=== PATIENT | female | born 1980 | race Caucasian/White ===

== ENCOUNTER 2025-08-13 14:04 | Outpatient (CLI) | payer OTHER, SELFPAY | END 2025-08-13 14:05 | disposition home or self-care (01) | LOC: AMB 09-20 02:54 | PROVIDERS: Visit Provider Emergency Medicine | DX: T14.90XA Injury, unspecified, initial encounter (principal); V44.5XXA Car driver injured in collision with heavy transport vehicle or bus in traffic accident, initial encounter; Y92.415 Exit ramp or entrance ramp of street or highway as the place of occurrence of the external cause | CPT/HCPCS: A0998 ==